=== PATIENT | female | born 1935 | race Caucasian/White ===

== ENCOUNTER 2016-12-15 11:26 | Emergency (ER) | payer MEDICARE ==
[2016-12-15 12:05] LABS: Hematocrit 38 % (35-47); Hemoglobin 12.5 g/dl (12.0-16.0); Mean Corpuscular HGB Conc 33 g/dl (31-36); Mean Corpuscular Hemoglobin 27 pg (27-31); Mean Corpuscular Volume 82 fL (80-97); Mean Platelet Volume 9 um3 (7.4-10.4); Red Blood Count 4.56 10^6/ul (4.0-5.4); Red Cell Distribution Width 15 % (10.5-15); White Blood Count 4.7 10^3/ul (3.5-10.8)
[2016-12-15] MEDS ORDERED: Meclizine TAB* 12.5 MG PO ONE (12:06)
[2016-12-15 12:21] LABS: ALT 13 U/L (7-52); Albumin 3.7 g/dL (3.2-5.2); Alkaline Phosphatase 41 U/L (34-104); BUN/Creatinine Ratio 21.1 (8-20); Blood Urea Nitrogen 19 mg/dL (6-24); C Reactive Protein < 1.00 mg/L (< 5.00); CO2 Carbon Dioxide 33 mmol/L (22-32); Calcium 9.3 mg/dL (8.6-10.3); Chloride 101 mmol/L (101-111); Creatine Kinase 73 U/L (10-223); EGFR African American 77.1 (>60); EGFR Non-African American 59.9 (>60); Globulin 2.6 g/dL (2-4); Glucose 89 mg/dL (70-100); Magnesium 2.2 mg/dL (1.9-2.7); Sodium 139 mmol/L (133-145); Total Protein 6.3 g/dL (6.4-8.9)
--- NOTE | 2016-12-15 12:25 | RAD ---
Indication: Dizziness 2 views of the chest including dual energy PA views demonstrate no mediastinal shift. Heart is of normal size and configuration. Lung hernandez are clear. IMPRESSION: No active disease is noted.
[2016-12-15 12:32] LABS: AST 23 U/L (13-39); Anion Gap 5 mmol/L (2-11); Potassium 3.9 mmol/L (3.5-5.0)
[2016-12-15 12:44] LABS: TSH (Thyroid Stimulating Horm) 2.35 mcIU/mL (0.34-5.60)
--- NOTE | 2016-12-15 14:25 | ED ---
Chely Wick SooYoung, scribed for Shailesh Calle MD on 12/15/16 at 1144 . Dizziness - HPI Summary HPI Summary: A 81 y/o F presents to ED with c/o intermittent episodes of dizziness for past 7 days and occurring again this AM when she woke up. Pt describes the sensation as both room-spinning and feeling weak in her legs. Denies: CP, SOB, n/v/d, cough, fever, abd pain. Pt takes Atenolol, daily aspirin. - History Of Current Complaint Chief Complaint: EDDizziness Stated Complaint: LOW PULSE Time Seen by Provider: 12/15/16 11:37 Hx Obtained From: Patient Onset/Duration: Still Present Timing: Intermittent Episode Lasting Character: Room Spinning, Weak Associated Signs And Symptoms: Negative: Nausea, Vomiting, Diarrhea, Chest Pain , SOB, Fever - Allergies/Home Medications Allergies/Adverse Reactions: Allergies Allergy/AdvReac Type Severity Reaction Status Date / Time Penicillins Allergy Rash Verified 12/15/16 11:36 PMH/Surg Hx/FS Hx/Imm Hx Previously Healthy: No Cardiovascular History: Reports: Hx Hypercholesterolemia, Hx Hypertension Psychiatric History: Reports: Hx Anxiety Infectious Disease History: No Infectious Disease History: Denies: Traveled Outside the [place] in Last 30 Days - Family History Known Family History: Positive: Hypertension Negative: Cardiac Disease Family History: pt's mother is 101 and still alive. - Social History Occupation: Employed Full-time - SELF Lives: With Family Hx Tobacco Use: No Smoking Status (MU): Never Smoked Tobacco Review of Systems Negative: Fever Negative: Chest Pain Negative: Shortness Of Breath, Cough Negative: Abdominal Pain, Vomiting, Diarrhea, Nausea Neurological: Other - pos: dizziness Positive: Weakness All Other Systems Reviewed And Are Negative: Yes Physical Exam - Summary Physical Exam Summary: VITAL SIGNS: Reviewed. GENERAL: Patient is a well-developed and nourished female who is lying comfortable in the stretcher. Patient is not in any acute respiratory distress. HEAD AND FACE: No signs of trauma. No ecchymosis, hematomas or skull depressions. No sinus tenderness. EYES: PERRLA, EOMI x 2, No injected conjunctiva, no nystagmus. EARS: Hearing grossly intact. Ear canals and tympanic membranes are within normal limits. MOUTH: Oropharynx within normal limits. NECK: Supple, trachea is midline, no adenopathy, no JVD, no carotid bruit, no c- spine tenderness, neck with full ROM. CHEST: Symmetric, no tenderness at palpation LUNGS: Clear to auscultation bilaterally. No wheezing or crackles. CVS: REGULAR RHYTHM, S1 and S2 present, no murmurs or gallops appreciated. ABDOMEN: Soft, non-tender. No signs of distention. No rebound, no guarding, and no masses palpated. Bowel sounds are normal. EXTREMITIES: FROM in all major joints, no edema, no cyanosis or clubbing. NEURO: Alert and oriented x 3. No acute neurological deficits. Speech is normal and follows commands. SKIN: Dry and warm Triage Information Reviewed: Yes Vital Signs On Initial Exam: Initial Vitals Temp Pulse Resp BP Pulse Ox 98.4 F 54 17 150/56 100 12/15/16 11:29 12/15/16 11:29 12/15/16 11:29 12/15/16 11:29 12/15/16 11:29 Vital Signs Reviewed: Yes Diagnostics - Vital Signs Vital Signs Temp Pulse Resp BP Pulse Ox 12/15/16 11:34 98.4 F 54 17 150/56 100 12/15/16 11:29 98.4 F 54 17 150/56 100 - Laboratory Lab Results: Lab Results 12/15/16 12/15/16 12/15/16 Range/Units 11:40 11:40 11:40 WBC 4.7 (3.5-10.8) 10^3/ul RBC 4.56 (4.0-5.4) 10^6/ul Hgb 12.5 (12.0-16.0) g/dl Hct 38 (35-47) % MCV 82 (80-97) fL MCH 27 (27-31) pg MCHC 33 (31-36) g/dl RDW 15 (10.5-15) % Plt Count 157 (150-450) 10^3/ul MPV 9 (7.4-10.4) um3 Neut % (Auto) 54.2 (38-83) % Lymph % (Auto) 34.5 (25-47) % [place] % (Auto) 8.4 (1-9) % Eos % (Auto) 2.1 (0-6) % Baso % (Auto) 0.8 (0-2) % Absolute Neuts (auto) 2.5 (1.5-7.7) 10^3/ul Absolute Lymphs (auto) 1.6 (1.0-4.8) 10^3/ul Absolute Monos (auto) 0.4 (0-0.8) 10^3/ul Absolute Eos (auto) 0.1 (0-0.6) 10^3/ul Absolute Basos (auto) 0 (0-0.2) 10^3/ul Absolute Nucleated RBC 0 10^3/ul Nucleated RBC % 0 Sodium 139 (133-145) mmol/L Potassium 3.9 (3.5-5.0) mmol/L Chloride 101 (101-111) mmol/L Carbon Dioxide 33 H (22-32) mmol/L Anion Gap 5 (2-11) mmol/L BUN 19 (6-24) mg/dL Creatinine 0.90 (0.51-0.95) mg/dL Est GFR ( Amer) 77.1 (>60) Est GFR (Non-Af Amer) 59.9 (>60) BUN/Creatinine Ratio 21.1 H (8-20) Glucose 89 (70-100) mg/dL Lactic Acid 1.3 (0.5-2.0) mmol/L Calcium 9.3 (8.6-10.3) mg/dL Magnesium 2.2 (1.9-2.7) mg/dL Total Bilirubin 0.50 (0.2-1.0) mg/dL AST 23 (13-39) U/L ALT 13 (7-52) U/L Alkaline Phosphatase 41 (34-104) U/L Total Creatine Kinase 73 (10-223) U/L Troponin I 0.00 (<0.04) ng/mL C-Reactive Protein < 1.00 (< 5.00) mg/L B-Natriuretic Peptide ( - 100) pg/mL Total Protein 6.3 L (6.4-8.9) g/dL Albumin 3.7 (3.2-5.2) g/dL Globulin 2.6 (2-4) g/dL Albumin/Globulin Ratio 1.4 (1-3) TSH 2.35 (0.34-5.60) mcIU/mL 12/15/16 Range/Units 11:40 WBC (3.5-10.8) 10^3/ul RBC (4.0-5.4) 10^6/ul Hgb (12.0-16.0) g/dl Hct (35-47) % MCV (80-97) fL MCH (27-31) pg MCHC (31-36) g/dl RDW (10.5-15) % Plt Count (150-450) 10^3/ul MPV (7.4-10.4) um3 Neut % (Auto) (38-83) % Lymph % (Auto) (25-47) % [place] % (Auto) (1-9) % Eos % (Auto) (0-6) % Baso % (Auto) (0-2) % Absolute Neuts (auto) (1.5-7.7) 10^3/ul Absolute Lymphs (auto) (1.0-4.8) 10^3/ul Absolute Monos (auto) (0-0.8) 10^3/ul Absolute Eos (auto) (0-0.6) 10^3/ul Absolute Basos (auto) (0-0.2) 10^3/ul Absolute Nucleated RBC 10^3/ul Nucleated RBC % Sodium (133-145) mmol/L Potassium (3.5-5.0) mmol/L Chloride (101-111) mmol/L Carbon Dioxide (22-32) mmol/L Anion Gap (2-11) mmol/L BUN (6-24) mg/dL Creatinine (0.51-0.95) mg/dL Est GFR ( Amer) (>60) Est GFR (Non-Af Amer) (>60) BUN/Creatinine Ratio (8-20) Glucose (70-100) mg/dL Lactic Acid (0.5-2.0) mmol/L Calcium (8.6-10.3) mg/dL Magnesium (1.9-2.7) mg/dL Total Bilirubin (0.2-1.0) mg/dL AST (13-39) U/L ALT (7-52) U/L Alkaline Phosphatase (34-104) U/L Total Creatine Kinase (10-223) U/L Troponin I (<0.04) ng/mL C-Reactive Protein (< 5.00) mg/L B-Natriuretic Peptide 195 H ( - 100) pg/mL Total Protein (6.4-8.9) g/dL Albumin (3.2-5.2) g/dL Globulin (2-4) g/dL Albumin/Globulin Ratio (1-3) TSH (0.34-5.60) mcIU/mL Result Diagrams: 12/15/16 11:40 12/15/16 11:40 Lab Statement: Any lab studies that have been ordered have been reviewed, and results considered in the medical decision making process. - Radiology CXR Xray Interpretation: No Acute Changes - IMPRESSION: No active dz Radiology Interpretation Completed By: Radiologist - EKG 1 Cardiac Rate: NL EKG Rhythm: Sinus Bradycardia - 56bpm ST Segment: Normal - no ST elevation Re-Evaluation - Re-Evaluation 1 Re-Evaluation Time: 12:32 Change: Unchanged Comment: Discussing results with pt. Dizzy Course/Dx - Course Assessment/Plan: A 81 y/o F presents to ED with c/o intermittent episodes of dizziness for past 7 days and occurring again this AM when she woke up. Pt describes the sensation as both room-spinning and feeling weak in her legs. Denies: CP, SOB, n/v/d, cough, fever, abd pain. Pt takes Atenolol, daily aspirin. In the ED course an IV access was obtained. Patient was placed in a business liaison officer. Patient was started with IV fluids. Labs within normal limits except for CO2 33, BNP 195. Troponin #1: and Troponin # 2 (4 hours later): EKG shows a sinus bradycardia w/o ST elevations. CXR impression: No acute pathology. . In the ED course she was given Antivert w/o any changes. However patient reports she is feeling better. She is able to ambulate w/o any complaints or dizziness. I believe patient is taking too much Atenolol since her HR decreased initially in the ER. She was asked to f/u with PCP in the next 2 days. . I discussed all the findings and test results with the patient. Patient was instructed to return to the emergency room immediately if any of the symptoms return or worsens. Patient understands and agrees. Plan of care was discussed with the patient and patient understands and agrees with the plan of care. All questions were answered at patient satisfaction. There were no further complaints or concerns. Patient is alert and oriented x 3. Patient vital signs are stable. Patient is to follow up with primary care physician in the next 2 to 3 days. Patient understands and agrees. - Diagnoses Differential Diagnosis/HQI/PQRI: Dysrhythmia, Vasovagal Reaction Provider Diagnoses: Dizziness Discharge - Discharge Plan Condition: Stable Disposition: HOME Patient Education Materials: Dizziness (ED) Referrals: Non Staff,Doctor [Primary Care Provider] - [facility] [place] [facility] [Outside] Additional Instructions: PLEASE RETURN TO THE ED IF YOU EXPERIENCE NEW OR WORSENING SYMPTOMS. The documentation as recorded by the Chely moore SooYoung accurately reflects the service I personally performed and the decisions made by me, Shailesh Calle MD.
[2016-12-15 14:34] VITALS: BP 126/78
== END 2016-12-15 14:38 | disposition home or self-care (01) ==
LOC: ED 11:26
DX: R42 Dizziness and giddiness (principal); R53.1 Weakness; R00.1 Bradycardia, unspecified; E78.00 Pure hypercholesterolemia, unspecified; I10 Essential (primary) hypertension; F41.9 Anxiety disorder, unspecified; Z88.0 Allergy status to penicillin
CPT/HCPCS: 36415; 71020; 80053; 82550; 83605; 83735; 83880; 84443; 84484; 85025; 86140; 93005; 99283